=== PATIENT | female | born 1985 | race Asian ===

== ENCOUNTER 2016-10-28 20:48 | Inpatient (IN) | payer BC ==
[2016-10-29] MEDS ORDERED: Buffered Lidocaine 1% SYR 3ML* 3 ML/SYR SYRINGE INTRADERM PRN (07:06)
[2016-10-29] MEDS ORDERED: Promethazine INJ(RESTRICTED)* 25 MG/ML 1 ML VIAL IV ONE (07:10)
[2016-10-29] MEDS ORDERED: Nalbuphine* 20 MG/ML 1 ML VIAL IV ONE (07:10)
[2016-10-29] MEDS ORDERED: Oxytocin in LR* 20 UNITS/1,000 ML BAG IVPB SCH ×2 (09:00→17:00)
[2016-10-29 10:13] LABS: Hematocrit 38 % (35-47); Hemoglobin 12.7 g/dl (12.0-16.0); Mean Corpuscular HGB Conc 34 g/dl (31-36); Mean Corpuscular Hemoglobin 32 pg (27-31); Mean Corpuscular Volume 94 fL (80-97); Mean Platelet Volume 9 um3 (7.4-10.4); Red Cell Distribution Width 14 % (10.5-15); White Blood Count 12.8 10^3/ul (3.5-10.8)
[2016-10-29] MEDS ORDERED: OBEPIDURAL* 250 ML ONE (10:26)
[2016-10-29] MEDS ORDERED: Phenylephrine IV* 40 MCG/ML 10 ML SYRINGE IV PUSH PRN (10:47)
[2016-10-29] MEDS ORDERED: Famotidine TAB* 20 MG PO PRN (10:47)
[2016-10-29] MEDS ORDERED: Sodium Citrate/Citric Acid* 15 ML UDC PO PRN (10:47)
[2016-10-29] MEDS ORDERED: EPHEDrine (Pressors)* 50 MG/ML VIAL IV PUSH PRN (10:47)
[2016-10-29] MEDS ORDERED: OBEPIDURAL* 250 ML EPIDURAL SCH (11:00)
[2016-10-29] MEDS ORDERED: Glycerin ADULT SUPP PR PRN (17:00)
[2016-10-29] MEDS ORDERED: Ibuprofen TAB* 600 MG PO PRN (17:00)
[2016-10-29] MEDS ORDERED: Acetaminophen TAB* 325 MG PO PRN (17:00)
[2016-10-29] MEDS ORDERED: Dibucaine 1% 28.35 GM TUBE PR PRN (17:00)
[2016-10-29] MEDS ORDERED: Witch Hazel PAD* JAR TOPICAL PRN (17:00)
[2016-10-29] MEDS: Simethicone TAB* 80 MG TAB.CHEW PO SCH (17:30)
[2016-10-29] MEDS: Docusate CAP* 100 MG PO SCH (20:09)
[2016-10-30] MEDS: Simethicone TAB* 80 MG TAB.CHEW PO SCH (04:41)
[2016-10-30 07:38] LABS: Hematocrit 32 % (35-47); Hemoglobin 10.7 g/dl (12.0-16.0); Mean Corpuscular HGB Conc 34 g/dl (31-36); Mean Corpuscular Hemoglobin 32 pg (27-31); Mean Corpuscular Volume 95 fL (80-97); Mean Platelet Volume 9 um3 (7.4-10.4); Red Blood Count 3.31 10^6/ul (4.0-5.4); Red Cell Distribution Width 14 % (10.5-15); White Blood Count 15.4 10^3/ul (3.5-10.8)
[2016-10-30] MEDS ORDERED: Ferrous Gluconate TAB* 324 MG TAB PO SCH (09:00)
[2016-10-30] MEDS: Docusate CAP* 100 MG PO SCH ×2 (09:17→14:32)
[2016-10-31] MEDS: Docusate CAP* 100 MG PO SCH (04:01)
[2016-10-31 08:05] VITALS: BP 111/66
== END 2016-10-31 12:12 | disposition home or self-care (01) | DRG 560 ==
LOC: MCHOBOUT 20:48 → MCHOB 10-29 07:06
PROVIDERS: ADMIT Obstetrics & Gynecology; ATTEND Obstetrics & Gynecology
PROC: 10E0XZZ Delivery of Products of Conception, External Approach (ICD-10-PCS; principal; 2016-10-29)
PROC: 3E033VJ Introduction of Other Hormone into Peripheral Vein, Percutaneous Approach (ICD-10-PCS; 2016-10-29)
PROC: 10907ZC Drainage of Amniotic Fluid, Therapeutic from Products of Conception, Via Natural or Artificial Opening (ICD-10-PCS; 2016-10-29)
PROC: 0KQM0ZZ Repair Perineum Muscle, Open Approach (ICD-10-PCS; 2016-10-29)
DX: O63.0 Prolonged first stage (of labor) (principal); O70.1 Second degree perineal laceration during delivery; Z3A.39 39 weeks gestation of pregnancy; Z37.0 Single live birth
CPT/HCPCS: 36415; 85025; 86850; 86900; 86901; A9270-GY

== ENCOUNTER 2020-06-08 03:52 | Inpatient (IN) ==
[2020-06-08] MEDS ORDERED: Lactated Ringers 1000 ml BAG 1,000 ML IV ONE ×2 (04:37→10:51)
[2020-06-08] MEDS ORDERED: Lactated Ringers 1000 ml BAG 1,000 ML IV SCH ×3 (05:00→17:00)
[2020-06-08] MEDS ORDERED: Oxytocin in LR 20 UNITS/1,000 ML BAG IVPB SCH ×2 (06:00→17:00)
[2020-06-08 06:16] LABS: ABS Eosinophils 0.1 10^3/ul (0-0.6); ABS Lymphocytes 1.5 10^3/ul (1.0-4.8); ABS Monocytes 0.6 10^3/ul (0-0.8); ABS Neutrophils 6.1 10^3/ul (1.5-7.7); Eosinophil % 0.9 %; Hematocrit 36 % (35-47); Hemoglobin 12.5 g/dL (12.0-16.0); Lymphocyte % 18.1 %; Mean Corpuscular HGB Conc 35 g/dL (31-36); Mean Corpuscular Hemoglobin 31 pg (27-31); Mean Corpuscular Volume 91 fL (80-97); Mean Platelet Volume 10.7 fL (7.4-10.4); Platelet Count 205 10^3/uL (150-450); Red Blood Count 3.99 10^6 /uL (3.70-4.87); Red Cell Distribution Width 15 % (10-15); White Blood Count 8.3 10^3/uL (3.5-10.8)
[2020-06-08 06:30] LABS: Urine Benzodiazepine Screen None Detected (None Detect); Urine Cannabinoids Screen None Detected (None Detect); Urine Opiates Screen None Detected (None Detect)
[2020-06-08] MEDS ORDERED: OBEPIDURAL 250 ML EPIDURAL ONE (09:57)
[2020-06-08] MEDS ORDERED: Phenylephrine 40 mcg/mL 10mL (400mcg) SYRINGE IV PUSH PRN ×2 (10:51)
[2020-06-08] MEDS ORDERED: Sodium Citrate/Citric Acid LIQ 15 ML UDC PO PRN (10:51)
[2020-06-08] MEDS ORDERED: OBEPIDURAL 250 ML EPIDURAL SCH (11:00)
[2020-06-08] MEDS ORDERED: Glycerin ADULT 2.4 gm SUPP PR PRN (16:38)
[2020-06-08] MEDS ORDERED: Dibucaine 1% OINT 28.35 GM TUBE PR PRN (16:38)
[2020-06-08] MEDS ORDERED: Witch Hazel PAD JAR TOPICAL PRN (16:38)
[2020-06-09 08:40] LABS: ABS Eosinophils 0.1 10^3/ul (0-0.6); ABS Lymphocytes 1.2 10^3/ul (1.0-4.8); ABS Monocytes 0.7 10^3/ul (0-0.8); ABS Neutrophils 8.9 10^3/ul (1.5-7.7); Eosinophil % 0.8 %; Hematocrit 32 % (35-47); Mean Corpuscular HGB Conc 34 g/dL (31-36); Mean Corpuscular Hemoglobin 31 pg (27-31); Mean Corpuscular Volume 91 fL (80-97); Mean Platelet Volume 10.1 fL (7.4-10.4); Platelet Count 180 10^3/uL (150-450); Red Blood Count 3.55 10^6 /uL (3.70-4.87); Red Cell Distribution Width 15 % (10-15)
[2020-06-09 11:54] VITALS: BP 93/72
== END 2020-06-09 19:25 | disposition home or self-care (01) | DRG 807 ==
LOC: MCHOBOUT 03:52 → MCHOB 04:29
PROVIDERS: ADMIT Midwife; ATTEND Midwife